=== PATIENT | female | born 1985 | race Caucasian/White ===

== ENCOUNTER 2018-06-14 19:27 | Emergency (ER) | payer SELFPAY ==
[2018-06-14 21:22] LABS: CHLORIDE,CL 106 mmol/L (98-107); SODIUM,NA 139 mmol/L (136-145)
[2018-06-14] MEDS ORDERED: Ketorolac 60 MG/2 ML SDV IM ONE (21:28)
--- NOTE | 2018-06-14 21:35 | EDM.PDOC ---
ED HPI GENERAL MEDICAL PROBLEM - General Chief Complaint: Abdominal Pain Stated Complaint: PT HAS STOMACH PAINS Time Seen by Provider: 06/14/18 20:04 Source of Information: Reports: Patient History Limitations: Reports: No Limitations - History of Present Illness INITIAL COMMENTS - FREE TEXT/NARRATIVE: HISTORY AND PHYSICAL: History of present illness: Patient is a 32-year-old female who presents to the emergency room today with complaints of right lower quadrant pain over the past 2-3 months. She states this pain is intermittent and is associated with urinary frequency and urgency. She states that she does have a history of kidney stones, ovarian cyst and a bladder cyst. She denies any fever, chills, chest pain, shortness of breath or cough. Denies any nausea, vomiting, diarrhea, constipation or dysuria. Patient has had a hysterectomy, denies chance of Review of systems: As per history of present illness and below otherwise all systems reviewed and negative. Past medical history: As per history of present illness and as reviewed below otherwise noncontributory. Surgical history: As per history of present illness and as reviewed below otherwise noncontributory. Social history: No reported history of drug or alcohol abuse. Family history: As per history of present illness and as reviewed below otherwise noncontributory. Physical exam: General: Well-developed and well-nourished 32-year-old female. Alert and oriented. Nontoxic appearing and in no acute distress. HEENT: Atraumatic, normocephalic, pupils equal and reactive bilaterally, negative for conjunctival pallor or scleral icterus, mucous membranes moist, throat clear, neck supple, nontender, trachea midline. No drooling or trismus noted. No meningeal signs Lungs: Clear to auscultation, breath sounds equal bilaterally, chest nontender. Heart: S1S2, regular rate and rhythm without overt murmur Abdomen: Soft, nondistended, nontender. Negative for masses or hepatosplenomegaly. Negative for costovertebral tenderness. Pelvis: Stable nontender. Genitourinary: Deferred. Rectal: Deferred. Skin: Intact, warm, dry. No lesions or rashes noted. Extremities: Atraumatic, negative for cords or calf pain. Neurovascular unremarkable. Neuro: Awake, alert, oriented. Cranial nerves II through XII unremarkable. Cerebellum unremarkable. Motor and sensory unremarkable throughout. Exam nonfocal. Notes: Patient does not appear to have an acute abdomen. I will CT her abdomen and pelvis without contrast to look for stones. Lab work is unremarkable. CT shows a ambrocio to the left kidney measuring 2.2 cm. Patient states she has had history of cysts to ovaries and bladder. Patient states she is new to the area and currently does not have a primary care provider. Did discuss the need for establishing care for further evaluation and management. We discussed the CT finding and did recommend that she have further imaging and evaluation of this as an outpatient. She voices understanding and is agreeable to plan of care. Denies any further questions or concerns at this time. Diagnostics: CBC, CMP, UA, CT abdomen and pelvis Therapeutics: Toradol IM Prescription: Tramadol #15 Impression: Abdominal Pain Plan: 1. Please follow-up with a primary care provider for further evaluation and management of your chronic abdominal pain. The CT does recommend a renal ultrasound as an outpatient for further evaluation of a cyst on the left kidney. 2. Tylenol and/or ibuprofen as needed for pain management. Tramadol for moderate to severe pain. Medication does cause drowsiness so do not take it will driving her needing to be functioning outside of the house. 3. Follow up as we discussed in the next 1-2 days. Return to the ED as needed and as discussed. Definitive disposition and diagnosis as appropriate pending reevaluation and review of above. Right Lower Abdominal Pain Score (Numeric/FACES): 7 Past Medical History Genitourinary History: Reports: Renal Calculus Oncologic (Cancer) History: Reports: Cervix Social & Family History - Family History Family Medical History: Noncontributory - Tobacco Use Smoking Status *Q: Current Every Day Smoker Years of Tobacco use: 20 Packs/Tins Daily: 1 - Caffeine Use Caffeine Use: Reports: Soda - Recreational Drug Use Recreational Drug Use: No ED ROS GENERAL - Review of Systems Review Of Systems: ROS reveals no pertinent complaints other than HPI. ED EXAM, GI/ABD - Physical Exam Exam: See Below (See dictation) Course - Vital Signs Last Recorded V/S: Last Vital Signs Temp 98.8 F 06/14/18 20:15 Pulse 82 06/14/18 20:15 Resp 18 06/14/18 20:15 BP 133/84 06/14/18 20:15 Pulse Ox 98 06/14/18 20:15 - Orders/Labs/Meds Orders: Active Orders 24 hr Category Date Time Status Abdomen Pelvis wo Cont [CT] Stat Exams 06/14/18 21:28 Taken Labs: Laboratory Tests 06/14/18 06/14/18 06/14/18 Range/Units 20:48 20:48 20:53 WBC 11.03 H (4.0-11.0) K/uL RBC 4.69 (4.30-5.90) M/uL Hgb 14.0 (12.0-16.0) g/dL Hct 42.5 (36.0-46.0) % MCV 90.6 (80.0-98.0) fL MCH 29.9 (27.0-32.0) pg MCHC 32.9 (31.0-37.0) g/dL RDW Std Deviation 44.3 (28.0-62.0) fl RDW Coeff of Melva 14 (11.0-15.0) % Plt Count 259 (150-400) K/uL MPV 10.50 (7.40-12.00) fL Neut % (Auto) 64.6 (48.0-80.0) % Lymph % (Auto) 27.3 (16.0-40.0) % [place] % (Auto) 6.4 (0.0-15.0) % Eos % (Auto) 1.2 (0.0-7.0) % Baso % (Auto) 0.5 (0.0-1.5) % Neut # (Auto) 7.1 H (1.4-5.7) K/uL Lymph # (Auto) 3.0 H (0.6-2.4) K/uL [place] # (Auto) 0.7 (0.0-0.8) K/uL Eos # (Auto) 0.1 (0.0-0.7) K/uL Baso # (Auto) 0.1 (0.0-0.1) K/uL Nucleated RBC % 0.0 /100WBC Nucleated RBCs # 0 K/uL Sodium 139 (136-145) mmol/L Potassium 4.3 (3.5-5.1) mmol/L Chloride 106 (98-107) mmol/L Carbon Dioxide 27.3 (21.0-32.0) mmol/L BUN 14 (7.0-18.0) mg/dL Creatinine 0.5 L (0.6-1.0) mg/dL Est Cr Clr Drug Dosing 144.00 mL/min Estimated GFR (MDRD) > 60.0 ml/min Glucose 98 (74-106) mg/dL Calcium 8.9 (8.5-10.1) mg/dL Total Bilirubin 0.2 (0.2-1.0) mg/dL AST 15 (15-37) IU/L ALT 32 (14-63) IU/L Alkaline Phosphatase 80 (46-116) U/L Total Protein 6.9 (6.4-8.2) g/dL Albumin 4.0 (3.4-5.0) g/dL Globulin 2.9 (2.0-3.5) g/dL Albumin/Globulin Ratio 1.4 (1.3-2.8) Urine Color YELLOW Urine Appearance CLEAR Urine pH 6.5 (5.0-8.0) Ur Specific [place] 1.025 (1.001-1.035) Urine Protein NEGATIVE (NEGATIVE) mg/dL Urine Glucose (UA) NEGATIVE (NEGATIVE) mg/dL Urine Ketones NEGATIVE (NEGATIVE) mg/dL Urine Occult Blood NEGATIVE (NEGATIVE) Urine Nitrite NEGATIVE (NEGATIVE) Urine Bilirubin NEGATIVE (NEGATIVE) Urine Urobilinogen 0.2 (<2.0) EU/dL Ur Leukocyte Esterase NEGATIVE (NEGATIVE) Urine RBC 0-2 (0-2/HPF) Urine WBC 0-2 (0-5/HPF) Ur Epithelial Cells RARE (NONE-FEW) Urine Bacteria RARE (NEGATIVE) Meds: Medications Discontinued Medications Generic Name Dose Route Start Last Admin Trade Name Gonzalo PRN Reason Stop Dose Admin Ketorolac Tromethamine 60 mg 06/14/18 21:28 06/14/18 21:51 Toradol IM 06/14/18 21:29 60 mg ONETIME ONE Administration Departure - Departure Time of Disposition: 22:15 Disposition: Home, Self-Care 01 Clinical Impression: Abdominal pain Qualifiers: Abdominal location: right lower quadrant Qualified Code(s): R10.31 - Right lower quadrant pain - Discharge Information Instructions: Abdominal Pain, Adult, [id number] Referrals: PCP,None [Primary Care Provider] - Forms: ED Department Discharge Additional Instructions: The following information is given to patients seen in the emergency department who are being discharged to home. This information is to outline your options for follow-up care. We provide all patients seen in our emergency department with a follow-up referral. The need for follow-up, as well as the timing and circumstances, are variable depending upon the specifics of your emergency department visit. If you don't have a primary care physician on staff, we will provide you with a referral. We always advise you to contact your personal physician following an emergency department visit to inform them of the circumstance of the visit and for follow-up with them and/or the need for any referrals to a consulting specialist. The emergency department will also refer you to a specialist when appropriate. This referral assures that you have the opportunity for follow-up care with a specialist. All of these measure are taken in an effort to provide you with optimal care, which includes your follow-up. Under all circumstances we always encourage you to contact your private physician who remains a resource for coordinating your care. When calling for follow-up care, please make the office aware that this follow-up is from your recent emergency room visit. If for any reason you are refused follow-up, please contact the [facility] Emergency Department at and asked to speak to the emergency department charge nurse. [facility] [address] [place] [id number] [address] 1. Please follow-up with a primary care provider for further evaluation and management of your chronic abdominal pain. The CT does recommend a renal ultrasound as an outpatient for further evaluation of a cyst on the left kidney. 2. Tylenol and/or ibuprofen as needed for pain management. Tramadol for moderate to severe pain. Medication does cause drowsiness so do not take it will driving her needing to be functioning outside of the house. 3. Follow up as we discussed in the next 1-2 days. Return to the ED as needed and as discussed. - My Orders Last 24 Hours: My Active Orders 06/14/18 21:28 Abdomen Pelvis wo Cont [CT] Stat - Assessment/Plan Last 24 Hours: My Active Orders 06/14/18 21:28 Abdomen Pelvis wo Cont [CT] Stat
--- NOTE | 2018-06-15 09:41 | CT ---
EXAM DATE: 06/14/18 PATIENT'S AGE: 32 Patient: PHONG HAYWOOD Facility: [place], [place] Site . Site : 1985 Study: CT Abdomen/Pelvis [id number]/1/2018 9:43:55 PM Ordering Physician: Doctor Robles Final Report: INDICATION: Right lower quadrant pain for 2 months, frequency of urination and urgency TECHNIQUE: CT Abdomen and pelvis without i.v. contrast. Coronal and sagittal reformats were obtained. CONTRAST: None COMPARISON: None FINDINGS: Lower chest: Unremarkable. Liver: Unremarkable. Spleen: Unremarkable. Pancreas: Unremarkable. Gallbladder: Previous cholecystectomy noted without significant intra- or extrahepatic biliary ductal dilatation seen. Kidney: There is a hyperdense exophytic lesion upper pole of the left kidney measuring 2.2 cm. Adrenal: Unremarkable. Bowel: There is a gasless density near the ileocecal valve without any apparent obstruction of the terminal ileum. This is most likely due to small bowel contents incompletely mixing with cecal stool. Moderate sigmoid diverticulosis is present with no evidence of diverticulitis. The appendix is normal in appearance and size. Vascular: Unremarkable. Lymph: Unremarkable. Peritoneum: Unremarkable. No pneumoperitoneum is seen. No significant ascites is noted. Pelvis: There is a 2.2 cm cyst or follicle present within the right ovary. Soft tissue: Unremarkable. Bone: Unremarkable for age. IMPRESSION: 1. There is a hyperdense exophytic lesion upper pole of the left kidney measuring 2.2 cm. Comparison with any prior outside imaging is recommended. If these cannot be obtained, follow up renal ultrasound is recommended for further characterization. Dictated by Octavio Mayberry MD @ 06/14/2018 10:04:03 PM Please note that all CT scans at this facility use dose modulation, iterative reconstruction, and/or weight-based dosing when appropriate to reduce radiation dose to as low as reasonably achievable. Dictated by: Octavio Mayberry MD @ 06/14/2018 22:04:29 (Electronic Signature) Report Signed by Proxy. [facility] MED[facility] CENTERJusto
== END 2018-06-14 22:36 | disposition home or self-care (01) ==
LOC: MW.ED 19:27
DX: R10.31 Right lower quadrant pain (principal); F17.210 Nicotine dependence, cigarettes, uncomplicated
CPT/HCPCS: 36415; 74176; 80053; 81001; 85025; 96372; 99284; J1885

== ENCOUNTER 2019-05-18 12:34 | Emergency (ER) | payer OTHER ==
[2019-05-18] MEDS ORDERED: Diphtheria,Pertussis(Acell),Tetanus Vaccine 0.5 ML Syringe IM ONE (12:53)
--- NOTE | 2019-05-18 13:04 | EDM.PDOC ---
ED HPI GENERAL MEDICAL PROBLEM - General Chief Complaint: General Stated Complaint: LEFT FOREARM NEEDLE STICK Time Seen by Provider: 05/18/19 12:36 Source of Information: Reports: Patient History Limitations: Reports: No Limitations - History of Present Illness INITIAL COMMENTS - FREE TEXT/NARRATIVE: HISTORY AND PHYSICAL: History of present illness: Patient is a 33-year-old female who presents to the emergency room today after a needle exposure while at work. 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 She states she immediately cleansed the area Review of systems: As per history of present illness and below otherwise all systems reviewed and negative. Past medical history: As per history of present illness and as reviewed below otherwise noncontributory. Surgical history: As per history of present illness and as reviewed below otherwise noncontributory. Social history: See social history for further information Family history: As per history of present illness and as reviewed below otherwise noncontributory. Physical exam: General: Well-developed and well-nourished 33-year-old female. Alert and oriented. Nontoxic appearing and in no acute distress. HEENT: Atraumatic, normocephalic, pupils equal and reactive bilaterally, negative for conjunctival pallor or scleral icterus, mucous membranes moist, trachea midline. No drooling or trismus noted. No meningeal signs. No hot potato voice noted. Lungs: Clear to auscultation, breath sounds equal bilaterally, chest nontender. Heart: S1S2, regular rate and rhythm without overt murmur Abdomen: Soft, nondistended, nontender. Negative for masses. Negative for costovertebral tenderness. Skin: Pinpoint puncture wound to the left dorsal aspect of the forearm. Otherwise skin is intact, warm, dry. No lesions or rashes noted. Extremities: Atraumatic, moves all extremities per self without difficulty or deficits, negative for cords or calf pain. Neurovascular unremarkable. Neuro: Awake, alert, oriented. Cranial nerves II through XII unremarkable. Cerebellum unremarkable. Motor and sensory unremarkable throughout. Exam nonfocal. Notes: Skin was cleansed. Tetanus was updated. Supportive care measures were reviewed and discussed. Voices understanding and is agreeable to plan of care. Denies any further questions or concerns at this time. Diagnostics: Exposure Panel Therapeutics: Tdap, wound care Prescription: None Impression: Needle stick exposure Plan: 1. Keep the skin clean and dry. Wash gently twice daily with water. Continue to monitor the area for signs of improvement. 2. The labs that were done today are send outs and typically do not get results for several days. We will call you if anything does return positive. As we discussed you may want to follow up with her primary care provider for reevaluation in the next several weeks/months. 3. Return to the ED as needed and as discussed. Definitive disposition and diagnosis as appropriate pending reevaluation and review of above. - Related Data Allergies Allergy/AdvReac Type Severity Reaction Status Date / Time codeine Allergy Rash Verified 05/18/19 12:48 Home Meds: Home Meds . 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 ED EXAM, GENERAL - Physical Exam Exam: See Below (See dictation) Course - Vital Signs Last Recorded V/S: Last Vital Signs Temp 97.1 F 05/18/19 12:48 Pulse 103 H 05/18/19 12:48 Resp 16 05/18/19 12:48 BP 128/81 05/18/19 12:48 Pulse Ox 100 05/18/19 12:48 - Orders/Labs/Meds Orders: Active Orders 24 hr Category Date Time Status HEPATITIS B SURFACE AB QUANT [CHEM] Routine Lab 05/18/19 12:53 Ordered HEPATITIS B SURFACE AG [CHEM] Routine Lab 05/18/19 12:53 Ordered HEPATITIS C ANTIBODY [CHEM] Routine Lab 05/18/19 12:53 Ordered HIV12 AG/AB 4TH GEN [CHEM] Routine Lab 05/18/19 12:53 Ordered Meds: Medications Discontinued Medications Generic Name Dose Route Start Last Admin Trade Name Gonzalo PRN Reason Stop Dose Admin Diphtheria/Tetanus/Acell Pertussis 0.5 ml 05/18/19 12:53 Adacel IM 05/18/19 12:54 .ONCE ONE Departure - Departure Time of Disposition: 13:04 Disposition: Home, Self-Care 01 Clinical Impression: Needle exposure Qualifiers: Encounter type: initial encounter Qualified Code(s): X58.XXXA - Exposure to other specified factors, initial encounter - Discharge Information Referrals: PCP,None [Primary Care Provider] - Forms: ED Department Discharge Additional Instructions: The following information is given to patients seen in the emergency department who are being discharged to home. This information is to outline your options for follow-up care. We provide all patients seen in our emergency department with a follow-up referral. The need for follow-up, as well as the timing and circumstances, are variable depending upon the specifics of your emergency department visit. If you don't have a primary care physician on staff, we will provide you with a referral. We always advise you to contact your personal physician following an emergency department visit to inform them of the circumstance of the visit and for follow-up with them and/or the need for any referrals to a consulting specialist. The emergency department will also refer you to a specialist when appropriate. This referral assures that you have the opportunity for follow-up care with a specialist. All of these measure are taken in an effort to provide you with optimal care, which includes your follow-up. Under all circumstances we always encourage you to contact your private physician who remains a resource for coordinating your care. When calling for follow-up care, please make the office aware that this follow-up is from your recent emergency room visit. If for any reason you are refused follow-up, please contact the [facility] Emergency Department at and asked to speak to the emergency department charge nurse. [facility] [address] [place] [id number] [address] [address] 1. Keep the skin clean and dry. Wash gently twice daily with water. Continue to monitor the area for signs of improvement. 2. The labs that were done today are send outs and typically do not get results for several days. We will call you if anything does return positive. As we discussed you may want to follow up with her primary care provider for reevaluation in the next several weeks/months. 3. Return to the ED as needed and as discussed. - My Orders Last 24 Hours: My Active Orders 05/18/19 12:53 HEPATITIS B SURFACE AB QUANT [CHEM] Routine HEPATITIS B SURFACE AG [CHEM] Routine HEPATITIS C ANTIBODY [CHEM] Routine HIV12 AG/AB 4TH GEN [CHEM] Routine - Assessment/Plan Last 24 Hours: My Active Orders 05/18/19 12:53 HEPATITIS B SURFACE AB QUANT [CHEM] Routine HEPATITIS B SURFACE AG [CHEM] Routine HEPATITIS C ANTIBODY [CHEM] Routine HIV12 AG/AB 4TH GEN [CHEM] Routine
== END 2019-05-18 13:25 | disposition home or self-care (01) ==
LOC: MW.ED 12:34
DX: S51.832A Puncture wound without foreign body of left forearm, initial encounter (principal); Z23 Encounter for immunization; F17.210 Nicotine dependence, cigarettes, uncomplicated; Z88.5 Allergy status to narcotic agent; W46.0XXA Contact with hypodermic needle, initial encounter; Y99.0 Civilian activity done for income or pay
CPT/HCPCS: 36415; 86706; 86803; 87340; 87389; 90471; 90715; 99283